=== PATIENT | female | born 1985 | race Caucasian/White ===

== ENCOUNTER 2020-08-22 03:23 | Emergency (ER) | payer SELFPAY ==
[~2020-08-22] VITALS: Ht 160 cm; Wt 70.0 kg
[2020-08-22 03:35] VITALS: BP 121/88
== END 2020-08-22 04:17 | disposition left against medical advice (07) ==
LOC: ER 03:23
DX: Z53.21 Procedure and treatment not carried out due to patient leaving prior to being seen by health care provider (principal)

== ENCOUNTER 2021-02-09 01:53 | Emergency (ER) | payer MEDICAID ==
[~2021-02-09] VITALS: Ht 160 cm; Wt 64.0 kg
[2021-02-09 01:56] VITALS: BP 107/64
[2021-02-09] MEDS ORDERED: DIPH28.34 TP (02:15)
[2021-02-09] MEDS ORDERED: CEPH500C2 MT (02:15)
[2021-02-09] MEDS ORDERED: SULF1TAB48 PO (02:15)
== END 2021-02-09 02:36 | disposition home or self-care (01) ==
LOC: ER 01:53
DX: L03.311 Cellulitis of abdominal wall (principal); Z98.890 Other specified postprocedural states; Z79.899 Other long term (current) drug therapy
CPT/HCPCS: 99283

== ENCOUNTER 2022-08-26 18:56 | Emergency (ER) | payer MEDICAID ==
[~2022-08-26] VITALS: Ht 165.1 cm; Wt 68.0 kg
[~2022-08-26 18:56] MED LIST: CEPH500C2 MT; DIPH28.34 TP; IBUP-2028 MT; SULF1TAB48 PO
[2022-08-26 19:07] VITALS: BP 132/72
== END 2022-08-27 01:29 | disposition home or self-care (01) ==
LOC: ER 18:56
DX: Z53.21 Procedure and treatment not carried out due to patient leaving prior to being seen by health care provider (principal); R30.0 Dysuria; R31.0 Gross hematuria